=== PATIENT | male | born 1960 | race Hispanic/Latino ===

== ENCOUNTER 2021-06-16 05:54 | Outpatient (CLI) | payer BC ==
[~2021-06-16] VITALS: Ht 167.6 cm; Wt 69.8 kg
[2021-06-16] MEDS ORDERED: ASPI-1238 PO (13:51)
[2021-06-16] MEDS ORDERED: IBUP-2473 PO (13:51)
[2021-06-16] MEDS ORDERED: ATOR10TA66 PO (13:51)
== END 2021-06-16 14:06 ==
LOC: PREOP 05:54
PROVIDERS: ATTEND Surgery
DX: Z01.818 Encounter for other preprocedural examination (principal)

== ENCOUNTER 2021-06-24 09:36 | Day surgery (SDC) | payer BC ==
[~2021-06-24] VITALS: Ht 167.6 cm; Wt 69.9 kg
[~2021-06-24 09:36] MED LIST: ASPI-1238 PO; ATOR10TA66 PO; IBUP-2473 PO
[2021-06-24] MEDS ORDERED: LACTATED RINGERS 1,000 ML IV ONE (09:50)
[2021-06-24] MEDS ORDERED: LACTATED RINGERS 1,000 ML IV STA (10:02)
[2021-06-24 10:16] VITALS: BP 132/55
--- NOTE | 2021-06-24 10:30 | Progress Note-Pre Operative ---
Pre-Operative Progress Note H&P Reviewed The H&P was reviewed, patient examined and no changes noted. Date Seen by Provider: Jun 24, 2021 Time Seen by Provider: 10:30 Date H&P Reviewed: Jun 24, 2021 Time H&P Reviewed: 10:30 Pre-Operative Diagnosis: screening colonoscopy YVROSE COOK DO Jun 24, 2021 10:30
[2021-06-24] MEDS ORDERED: PROPOFOL INJECTION 50 ML IV ONE (11:59)
[2021-06-24] MEDS ORDERED: MIDAZOLAM 2 MG/2 ML (VERSED) VIAL ONE (11:59)
--- NOTE | 2021-06-24 12:18 | Progress Note-Post Operative ---
Post-Operative Progess Note Surgeon (s)/Document Examiner (s) Surgeon YVROSE COOK DO Document Examiner: na Pre-Operative Diagnosis screening colonoscopy Post-Operative Diagnosis diverticulosis, internal hemorrhoids Procedure & Operative Findings Date of Procedure 06/24/21 Procedure Performed/Findings colonoscopy Anesthesia Type per flower shop laborer/designer Estimated Blood Loss Estimated blood loss (mL): none Specimens/Packing Specimens Removed na YVROSE COOK DO Jun 24, 2021 12:18
--- NOTE | 2021-06-24 12:19 | Discharge Inst-Simple/Standard ---
Discharge Inst-Standard Patient Instructions/Follow Up Plan of Care/Instructions/FU: 10 years lloyd, if any issues before that be seen at that time. Activity as Tolerated: Yes Discharge Diet: Regular Diet (high fiber diet) YVROSE COOK DO Jun 24, 2021 12:19
[2021-06-24 12:20] VITALS: BP 105/62
[2021-06-24 12:25] VITALS: BP 100/61
--- NOTE | 2021-06-24 12:40 | OPERATIVE REPORT ---
DATE OF SERVICE: 06/24/2021 PREOPERATIVE DIAGNOSIS: Screening colonoscopy. POSTOPERATIVE DIAGNOSES: Diverticulosis, internal hemorrhoids. PROCEDURE: Colonoscopy. SURGEON: Yvrose Cm DO ANESTHESIA: Per DRY KILN BURNER. ESTIMATED BLOOD LOSS: None. COMPLICATIONS: None. INDICATIONS: The patient is a 60-year-old male needing screening colonoscopy. He understands risks and benefits of procedure and wished to proceed. Consent was signed in the chart. DESCRIPTION OF PROCEDURE: The patient was taken to the endoscopy suite, placed in left lateral recumbent position. Timeout was performed. Digital rectal exam was performed. No palpable polyps, masses or ulcerations. Scope was inserted in the rectum and advanced all the way to cecum with minimal difficulty. Prep was adequate. Scope was slowly retracted back. No polyps, masses or ulcerations in the cecum, ascending, transverse, descending and sigmoid colon. Minimal amount of diverticulosis present in the sigmoid. Once in the rectum, scope was retroflexed noting no other pathology. Scope was returned to its normal position, slowly withdrawn until completely removed. The patient tolerated the procedure well without any complications, taken to recovery room in stable condition. RECOMMENDATIONS: The patient will need repeat colonoscopy in 10 years unless family history of colon cancer, which then be 5 years. Any issues before that be seen at that time. Recommend high fiber diet due to diverticulosis. Job ID: [id number] DocumentID: [id number] Dictated Date: 06/24/2021 12:21:50 Printing Press Operator Date: 06/24/2021 12:39:52 Dictated By: YVROSE CM DO
[2021-06-24 12:50] VITALS: BP 113/75
[2021-06-24 13:04] VITALS: BP 113/75
--- NOTE | 2021-06-24 14:53 | Anesthesia-General Post-Op ---
MAC Patient Condition Mental Status/LOC: Same as Preop Cardiovascular: Satisfactory Nausea/Vomiting: Absent Respiratory: Satisfactory Pain: Controlled Complications: Absent Post Op Complications Complications None Follow Up Care/Instructions Patient Instructions None needed. Anesthesiology Discharge Order Discharge Order Patient is doing well, no complaints, stable vital signs, no apparent adverse anesthesia problems. No complications reported per nursing. ASHLEE THURSTON CRNA Jun 24, 2021 14:53
== END 2021-06-24 13:05 | disposition home or self-care (01) ==
LOC: ENDO 09:36
PROVIDERS: ATTEND Surgery
DX: Z12.11 Encounter for screening for malignant neoplasm of colon (principal); K57.30 Diverticulosis of large intestine without perforation or abscess without bleeding; K64.8 Other hemorrhoids; Z79.82 Long term (current) use of aspirin